=== PATIENT | female | born 1985 | race Hispanic/Latino ===

== ENCOUNTER 2017-09-08 08:15 | Emergency (ER) | payer SELFPAY ==
[2017-09-08] MEDS ORDERED: Water For Inject, Bacteriostat 30 ML ONE (08:43)
[2017-09-08] MEDS ORDERED: methylPREDNISolone Sod Succ/PF 125 MG/2 ML VIAL ONE (08:43)
[2017-09-08 08:45] LABS: #Basophils 0.1 thou/uL (0.0-0.2); #Eosinphils 1.2 thou/uL (0.0-0.7); #Lymphocytes 4.6 thou/uL (1.20-3.40); #Monocytes 0.7 thou/uL (0.11-0.59); #Neutrophils 4.9 thou/uL (1.40-6.50); %Basophils 0.9 % (0.0-1.0); %Eosinophils 10.8 % (0.0-10.0); %Monocytes 5.7 % (0.0-10.0); Hematocrit 43.9 % (36.0-47.0); Mean Platelet Volume 7.8 fL (7.4-10.4); Red Blood Cell (RBC) Count 5.13 mill/uL (4.20-5.40); White Blood Cell (WBC) Count 11.5 thou/uL (4.8-10.8)
[2017-09-08] MEDS ORDERED: Magnesium 2 GM/NS 0.9% 50 ML 2 GM in Premix Bag 1 BAG IVPB SCH (09:00)
[2017-09-08 09:05] LABS: ALT (SGPT) 26 U/L (8-55); AST (SGOT) 24 U/L (5-34); Alkaline Phosphatase 74 U/L (40-150); Anion Gap 13 mmol/L (10-20); BUN (Urea Nitrogen) 10 mg/dL (7.0-18.7); Bilirubin, Total 0.3 mg/dL (0.2-1.2); CK (CPK) 81 U/L (29-168); Calc. Creatinine Clearance 0 mL/min (70-130); Carbon Dioxide 23 mmol/L (22-29); Chloride 104 mmol/L (98-107); Estimated GFR-MDRD Greater than 90; Protein, Total 7.7 g/dL (6.0-8.3)
[2017-09-08 09:08] LABS: Troponin I Less than 0.010 ng/mL (< 0.028)
--- NOTE | 2017-09-08 10:26 | RAD ---
CHEST 1 VIEW: Date: 09/08/17 HISTORY: Shortness of breath. COMPARISON: 03/28/07. FINDINGS: Portable upright chest demonstrates normal cardiac silhouette. Pulmonary vessels and hilum are normal . No masses or consolidation. No pneumothorax or osseous abnormalities. IMPRESSION: No acute cardiopulmonary process. POS: [facility]
--- NOTE | 2017-09-28 10:00 | EKG ---
Test Reason : Blood Pressure : / mmHG Vent. Rate : 099 BPM Atrial Rate : 099 BPM P-R Int : 144 ms QRS Dur : 092 ms QT Int : 376 ms P-R-T Axes : 060 048 024 degrees QTc Int : 482 ms Normal sinus rhythm Cannot rule out Anterior infarct , age undetermined Abnormal ECG Confirmed by KATELYN VILLALTA, TROY Parham ([id number]), editor news KRISTI COTA ([id number]) on 09/28/2017 10:00:05 AM Referred By: Confirmed By:TROY ZEPEDA MD
== END 2017-09-08 12:30 | disposition home or self-care (01) ==
LOC: ERS 08:15
DX: J45.901 Unspecified asthma with (acute) exacerbation (principal); E66.9 Obesity, unspecified; F41.9 Anxiety disorder, unspecified; F32.9 Major depressive disorder, single episode, unspecified; Z87.891 Personal history of nicotine dependence
CPT/HCPCS: 36415; 71010; 80053; 82553; 83880; 84484; 85025; 93005; 94640; 94644; 96365; 96366; 96375; J2930; J3475; J7620

== ENCOUNTER 2019-04-23 08:58 | Day surgery (SDC) | payer OTHER ==
[2019-04-22 08:51] VITALS: BMI 65.8
[2019-04-23 10:45] LABS: #Eosinphils 0.5 thou/uL (0.0-0.7); #Lymphocytes 3.4 thou/uL (1.20-3.40); #Monocytes 0.6 thou/uL (0.11-0.59); #Neutrophils 4.8 thou/uL (1.40-6.50); %Basophils 0.2 % (0.0-1.0); %Eosinophils 5.2 % (0.0-10.0); %Lymphocytes 36.6 % (21.0-51.0); %Neutrophils 52.1 % (42.0-75.0); Hemoglobin 13.5 g/dL (12.0-16.0); Mean Corpuscular HGB CONC 33.5 g/dL (32.0-36.0); Mean Corpuscular Hemoglobin 28.2 pg (27.0-31.0); Mean Corpuscular Volume 84.3 fL (78.0-98.0); Platelet Count 227 thou/uL (130-400); RBC Distribution Width 12.8 % (11.5-14.5); Red Blood Cell (RBC) Count 4.78 mill/uL (4.20-5.40); White Blood Cell (WBC) Count 9.2 thou/uL (4.8-10.8)
[2019-04-23] MEDS ORDERED: ceFAZolin Sodium (SDC) 2 GM/100 ML BAG ONE (10:48)
[2019-04-23] MEDS ORDERED: Lidocaine 2% Jelly 5 ML TUBE ONE (10:52)
[2019-04-23] MEDS ORDERED: Midazolam HCl 2 mg/2 ml Vial ONE (10:52)
[2019-04-23] MEDS ORDERED: Fentanyl 100 MCG/2 ML VIAL ONE (10:52)
[2019-04-23] MEDS ORDERED: Lidocaine 1% w/Epinephrine 1:100K 20 ML VIAL ONE (10:54)
[2019-04-23] MEDS ORDERED: Lidocaine 1% w/Epinephrine 1:200K 30 ML VIAL ONE (11:27)
[2019-04-23] MEDS ORDERED: Lidocaine 1% PF 5 ML VIAL ONE (11:59)
[2019-04-23] MEDS ORDERED: Succinylcholine Chloride 20 MG/ML 10 ml SYRINGE FS ONE (11:59)
[2019-04-23] MEDS ORDERED: PROPOFOL 200 MG/20 ML VIAL ONE (11:59)
[2019-04-23] MEDS ORDERED: Ondansetron PF 4 MG/2 ML Vial ONE (11:59)
[2019-04-23] MEDS ORDERED: Dexamethasone 20 MG/5 ML VIAL ONE (11:59)
[2019-04-23] MEDS ORDERED: Promethazine HCl 25 MG/ML VIAL ONE ×2 (13:02→13:24)
--- NOTE | 2019-04-23 18:44 | OP ---
DATE OF PROCEDURE: 04/23/2019 PREOPERATIVE DIAGNOSES: 1. Right carpal tunnel syndrome. 2. Right cubital tunnel. POSTOPERATIVE DIAGNOSES: 1. Right carpal tunnel syndrome. 2. Right cubital tunnel. PROCEDURES PERFORMED: 1. Right open carpal tunnel release. 2. Right open cubital tunnel release. 3. Long Arm Splint PERSONAL BANKING ADVISOR: None. ANESTHESIOLOGIST: Alex Coy MD ANESTHESIA: The patient received a general endotracheal intubation with 20 mL of 1% lidocaine with epinephrine. ESTIMATED BLOOD LOSS: 25 mL. TOURNIQUET TIME: 30 minutes at 250 mmHg. ANTIBIOTICS: Ancef 2 g. COMPLICATIONS: None. HISTORY OF PRESENT ILLNESS: Art is a 33-year-old female, who presents to my clinic presenting with history of bilateral carpal tunnel. She had an arthroscopic release on the left side. I discussed the patient, she had night pain, radiating pain from her elbows to hands. The patient has a history of night splints, decreased sensation, and difficulty. She had a history of steroid injections without relief. I discussed with the patient risks and benefits of a right open carpal tunnel release with cubital tunnel release. I discussed the risks and benefits of surgery, pain, scar, bleeding, infection, damage to vital structures to include the nerve, decreased range of motion and strength. I discussed with the patient, her increased mortality associated with her surgery, given her morbid obesity. She understood the risks and benefits, elected to proceed. DESCRIPTION OF PROCEDURE: Time-out was performed designating the patient's right upper extremity as the operative site, based on site, consents, and marking. After time-out, tourniquet was brought up and left up for a total of 30 minutes and posterior incision was made over the patient's medial epicondyle down through skin, down through fat, I dissected down until I found the nerve. I moved proximally, ensured it was freed from the patient's intermuscular septum completely released. I unroofed the Hester ligament fascia. I then followed the nerve into the investing forearm fascia of the forearm, bluntly dissected out. There was some translation of the nerve. I did not create a pocket for its position that was within the fat of the arm. I then washed and closed with 2-0 Vicryl, 3-0 nylon horizontal mattress sutures. I injected 10 mL of 1% lidocaine with epinephrine subcu around the nerve. I then moved distally, I made my incision down on the radial border of the fourth ray down through skin, down through the fat, down through the palmar fascia. I used a hemostat to protect and go to transverse carpal ligament protecting the nerve, ensured it was completely released. I washed and closed with 4-0 nylon and I injected 10 mL of 1% lidocaine with epinephrine in the incision. I left the tourniquet up for 30 minutes. The patient was placed in a long-arm splint. The patient will be discharged home. Will follow up me in about 10 to 12 days. Remove the splint in about 5 days and begin elbow and wrist range of motion. Keep her wounds covered. The patient's outlook is guarded. Job ID: [id number] [facility]
== END 2019-04-23 15:20 | disposition home or self-care (01) ==
LOC: SDC 08:58
PROVIDERS: ATTEND Orthopaedic Surgery
PROC: 01N60ZZ Release Radial Nerve, Open Approach (ICD-10-PCS; principal; 2019-04-23)
PROC: 01N50ZZ Release Median Nerve, Open Approach (ICD-10-PCS; principal; 2019-04-23)
DX: G56.01 Carpal tunnel syndrome, right upper limb (principal); G56.21 Lesion of ulnar nerve, right upper limb; Z98.890 Other specified postprocedural states; Z88.0 Allergy status to penicillin
CPT/HCPCS: 85025; J0690; J2001; J2250; J2550; J3010